=== PATIENT | male | born 1955 | race Caucasian/White ===

== ENCOUNTER 2019-06-19 09:18 | Outpatient (CLI) | payer OTHER, SELFPAY ==
--- NOTE | 2019-06-19 09:29 | FL_ITS ---
WS: [id number] MODIFIED BARIUM SWALLOW TECHNIQUE: Modified barium swallow with speech therapy using multiple consistencies. FLUOROSCOPY TIME: 1.1 minutes. CLINICAL INFORMATION: Other dysphagia COMPARISON: None. FINDINGS: Multiple consistencies utilized. No difficulties with barium tablet. No evidence of aspiration or pen etration. Normal oropharyngeal phase. Normal barium swallow. FL/FL barium swallow modifd [id number] IMPRESSION: Normal barium swallow.
== END 2019-06-19 09:19 | disposition home or self-care (01) ==
LOC: RAD 09:23
PROVIDERS: PCP Internal Medicine; Visit Provider Surgery
DX: R13.10 Dysphagia, unspecified (principal)
CPT/HCPCS: 74230; 92611